=== PATIENT | female | born 1945 | race Caucasian/White ===

== ENCOUNTER 2020-02-18 22:07 | Outpatient (CLI) | payer MEDICARE, BC | END 2020-02-18 22:08 | disposition critical access hospital (66) | LOC: EMS 22:07 | PROVIDERS: ATTEND Surgery | DX: S01.01XA Laceration without foreign body of scalp, initial encounter (principal); R51.9 Headache, unspecified; W19.XXXA Unspecified fall, initial encounter | CPT/HCPCS: A0425; A0429 ==

== ENCOUNTER 2020-02-18 22:55 | Emergency (ER) | payer MEDICARE, BC ==
[2020-02-18] MEDS ORDERED: BUFFERED LIDOCAINE 10 ML SYRINGE IU ONE (23:59)
[2020-02-19 02:00] VITALS: BP 134/72
--- NOTE | 2020-02-19 07:12 | CT Report ---
PROCEDURE: HEAD WO INDICATIONS: fall, head injury TECHNIQUE: Noncontrast 4.5 mm thick angled axial sections acquired from the foramen magnum to the vertex. For r adiation dose reduction, the following was used: automated exposure control, adjustment of mA and/or kV according to patient size. COMPARISON: None FINDINGS: Image quality: Excellent. CSF spaces: Basal cisterns are patent. No extra-axial fluid collections. The ventricles are symmet lynda in size and shape. Brain: No intracranial bleeds or masses. There is cerebral volume loss for age, with resultant vent ricular and sulcal prominence. There are periventricular and deep white matter chronic small vessel ischemic changes. There is intracranial internal carotid artery atherosclerosis. Skull and face: Calvarium and visualized facial bones appear intact, without suspicious lesions. Sinuses: Visualized sinuses and mastoids are clear. IMPRESSION: No acute intracranial disease process. Reviewed by: Cassie Bolanos MD, PhD on 02/19/2020 7:11 AM [facility] Approved by: Cassie Bolanos MD, PhD on 02/19/2020 7:11 AM [facility] Station ID: [id number]
--- NOTE | 2020-02-19 09:22 | ED Physician Documentation ---
PD HPI HEAD INJURY - Stated complaint Stated Complaint: GLF/HEAD LAC - Chief complaint Chief Complaint: Trauma Hd/Nk - History obtained from History obtained from: Patient - History of Present Illness Mechanism of head injury: Fell Where head injury occurred: Home Timing - onset: How many minutes ago (approximately 30-45 minutes [employer]) Pain level max: 0 Pain level now: 0 Location of injury: Back Associated symptoms: No: LOC, AMS, Nausea / vomiting, Neck pain Contributing factors: Intoxicated. No: Anticoagulated Similar symptoms before: Has not had sx before Recently seen: Not recently seen - Additional information Additional information: patient brought to ED by private vehicle (friend drove patient to ED). Patient says she had a cocktail alliance party tonight and had a few alcoholic drinks. Approximately 30 minutes [employer], she fell in her bathroom. She says she thinks she lost her balance and attributes this to the alcohol she drank tonight. She denies LOC, denies RONQUILLO, denies neck pain. she sustained a scalp laceration Review of Systems Cardiac: denies: Chest pain / pressure Musculoskeletal: reports: Reviewed and negative Neurologic: reports: Head injury. denies: Generalized weakness, Focal weakness, Numbness, Headache, LOC PD PAST MEDICAL HISTORY - Past Medical History Past Medical History: Yes Cardiovascular: Hypertension, High cholesterol THREAD WEAVER: Breast cancer Psych: Depression - Past Surgical History Past Surgical History: Yes /THREAD WEAVER: Mastectomy - Present Medications Home Medications: Ambulatory Orders Medication Instructions Recorded Confirmed Sertraline [Zoloft] 0 mg PO DAILY 10/14/13 02/18/20 Atorvastatin [Lipitor] DAILY 02/18/20 - Allergies Allergies/Adverse Reactions: Allergies Allergy/AdvReac Type Severity Reaction Status Date / Time pollen extracts Allergy Respiratory Verified 02/19/20 01:52 - Social History Does the pt smoke?: No Smoking Status: Never smoker Does the pt drink ETOH?: Yes ETOH Use: Wine, Liquor Does the pt have substance abuse?: No - Immunizations Immunizations are current?: No Immunizations: TDAP >10years/unknown PD ED PE NORMAL - Vitals Vital signs reviewed: Yes - General General: Alert and oriented X 3, No acute distress, Well developed/nourished - HEENT HEENT: PERRL, EOMI - Neck Neck: No bony TTP - Cardiac Cardiac: RRR, No murmur PD ED PE EXPANDED - HEENT HEENT Visual: 1 - laceration (2 cm length) Results - Vitals Vitals: Vital Signs - 24 hr 02/18/20 02/18/20 02/19/20 23:01 23:19 01:04 Temperature 36.9 C 36.8 C Heart Rate 85 76 Respiratory 18 16 Rate Blood Pressure 176/81 H 150/73 H 135/73 H O2 Saturation 93 96 02/19/20 01:59 Temperature 36.2 C L Heart Rate 78 Respiratory 18 Rate Blood Pressure 134/72 H O2 Saturation 96 Oxygen O2 Source Room air - Rads (name of study) CT head Radiology: Prelim report reviewed, See rad report Procedures - Laceration (location) Scalp Length in cm: 2 Wound type: Linear Anesthesia: Lidocaine 1%, With bicarb Wound Preparation: Hibiclens, Wound explored Skin layer closure: Mary Other: Patient tolerated well, No complications, Neurovascular intact, Tetanus UTD PD MEDICAL DECISION MAKING - ED course Complexity details: reviewed results, re-evaluated patient, considered differential, d/w patient Departure - Departure Disposition: 01 Home, Self Care Clinical Impression: Fall Qualifiers: Encounter type: initial encounter Qualified Code(s): W19.XXXA - Unspecified fall, initial encounter Scalp laceration Qualifiers: Encounter type: initial encounter Qualified Code(s): S01.01XA - Laceration without foreign body of scalp, initial encounter Condition: Good Instructions: ED Laceration Scalp Stitch Or Stap Comments: Follow up with your primary care provider in 7-8 days for removal of the mary Discharge Date/Time: 02/19/20 01:59
== END 2020-02-19 01:59 | disposition home or self-care (01) ==
LOC: EDUNIT# → ED 22:55
DX: S01.01XA Laceration without foreign body of scalp, initial encounter (principal); W18.30XA Fall on same level, unspecified, initial encounter; Y92.002 Bathroom of unspecified non-institutional (private) residence as the place of occurrence of the external cause; F10.929 Alcohol use, unspecified with intoxication, unspecified; I10 Essential (primary) hypertension
CPT/HCPCS: 12001; 70450; 99282; 99284

== ENCOUNTER 2022-05-23 16:56 | Emergency (ER) | payer MEDICARE, BC ==
--- NOTE | 2022-05-23 18:05 | ED Physician Documentation ---
History of Present Illness - Stated complaint Stated Complaint: ELEVATED BP - Chief complaint Chief Complaint: General - History obtained from History obtained from: Patient - Additonal information Additional information: 76-year-old woman with history of hypertension. She had been on antihypertensives but stopped a few months ago. Then her blood pressure was quite high in the range of 200/100. She started losartan/hydrochlorothiazide about a week ago and starting about 3 days ago she had some low readings in the range of 90/60 with some mild dizzy episodes. No chest pain, trouble breathing. She is drinking a lot of water and also notes polyuria. 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 [employer]D: Mastectomy - Present Medications Home Medications: Ambulatory Orders Medication Instructions Recorded Confirmed Sertraline [Zoloft] 0 mg PO DAILY 10/14/13 02/18/20 Atorvastatin [Lipitor] DAILY 02/18/20 Losartan [Cozaar] 50 mg PO DAILY #30 tablet 05/23/22 - Allergies Allergies/Adverse Reactions: Allergies Allergy/AdvReac Type Severity Reaction Status Date / Time pollen extracts Allergy Respiratory Verified 05/23/22 17:12 - Social History Does the pt smoke?: No Smoking Status: Never smoker Does the pt drink ETOH?: Yes Does the pt have substance abuse?: No - Immunizations Immunizations are current?: No Immunizations: TDAP >10years/unknown PD ED PE NORMAL - Vitals Vital signs reviewed: Yes - General General: Alert and oriented X 3, No acute distress - Cardiac Cardiac: RRR, No murmur - Respiratory Respiratory: No respiratory distress, Clear bilaterally - Abdomen Abdomen: Non tender - Extremities Extremities: No edema, No calf tenderness / cord - Neuro Neuro: Alert and oriented X 3, Normal speech Results - Vitals Vitals: Vital Signs - 24 hr 05/23/22 05/23/22 17:07 18:20 Temperature 36.2 C L Heart Rate 70 74 Respiratory 16 17 Rate Blood Pressure 147/67 H 148/83 H O2 Saturation 98 98 Oxygen O2 Source Room air - Labs Labs: Laboratory Tests 05/23/22 18:16 Sodium 136 Potassium 3.4 L Chloride 98 L Carbon Dioxide 27 Anion Gap 11.0 BUN 32 H Creatinine 1.1 H Estimated GFR (MDRD) 48 L Glucose 103 H Calcium 9.2 PD Medical Decision Making - ED course Complexity details: reviewed results (BMP reviewed showing changes consistent with diuretic use.) ED course: Low blood pressure after starting losartan/hydrochlorothiazide. I suspect the hydrochlorothiazide is making her dehydrated as it took several days for the lower blood pressures to start. She appears well here with normal exam. We will change her over to losartan only. Departure - Departure Disposition: Home, Self Care Clinical Impression: Hypertension Condition: Good Record reviewed to determine appropriate education?: Yes Prescriptions: Losartan [Cozaar] 50 mg PO DAILY #30 tablet Comments: Your basic metabolic panel today demonstrated BUN of 32 with creatinine of 1.1. As suspected I think your lisinopril/hydrochlorothiazide is making you deh ydrated. The hydrochlorothiazide is a diuretic component. I am prescribing just the lisinopril component. Stop the current medication and take the new 1. Drink plenty of fluids. Follow-up with your doctor this week for recheck.
[2022-05-23 18:20] VITALS: BP 148/83
[2022-05-23 18:30] LABS: CALCIUM 9.2 mg/dL (8.5-10.3); CREATININE 1.1 mg/dL (0.4-1.0); POTASSIUM 3.4 mmol/L (3.5-5.0)
== END 2022-05-23 18:48 | disposition home or self-care (01) ==
LOC: ED 16:56
DX: I10 Essential (primary) hypertension (principal)
CPT/HCPCS: 36415; 80048; 99283; 99284

== ENCOUNTER 2022-12-21 14:01 | Outpatient (CLI) | payer MEDICARE ==
[2022-12-21 20:27] LABS: ALBUMIN 4.4 g/dL (3.2-5.5); BILIRUBIN,TOTAL 0.5 mg/dL (0.2-1.0); CALCIUM 9.3 mg/dL (8.5-10.3); POTASSIUM 3.8 mmol/L (3.5-4.5); TOTAL PROTEIN 6.6 g/dL (6.4-8.9)
[2022-12-21 21:01] LABS: THYROID STIMULATING HORMONE 1.37 uIU/mL (0.34-5.60)
== END 2022-12-21 14:02 | disposition home or self-care (01) ==
LOC: LAB.S 14:01
PROVIDERS: ATTEND Physician Assistant Medical
DX: I10 Essential (primary) hypertension (principal)
CPT/HCPCS: 36415; 80053; 84443; 85025